=== PATIENT | male | born 2005 | race Caucasian/White ===

== ENCOUNTER 2025-07-08 20:02 | Emergency (ER) | payer BC ==
[2025-07-08] MEDS ORDERED: Bacitracin Oint 1 GM U/D Packet TOP ONE (20:19)
[2025-07-08] MEDS: fentaNYL 100 MCG/2 ML SDV IVPUSH ONE (20:27)
[2025-07-08] MEDS: Albuterol 0.021% 0.63 MG/3 ML Neb Soln NEB ONE (20:31)
[2025-07-08] MEDS: Lidocaine 2% Viscous Solution 15 ML UD PO ONE (20:31)
[2025-07-08] MEDS: Take Home: Acetaminophen/HYDROcodone 325-5 MG, 5 Tab Pack PO ONE (22:39)
[2025-07-08] MEDS: Take Home: Lidocaine 2% Viscous Solution 15 ML UD, 2 Cup Pack PO ONE (22:39)
== END 2025-07-08 22:43 | disposition home or self-care (01) ==
LOC: DL.ED 20:02
DX: T20.27XA Burn of second degree of neck, initial encounter (principal); T23.172A Burn of first degree of left wrist, initial encounter; T23.171A Burn of first degree of right wrist, initial encounter; X19.XXXA Contact with other heat and hot substances, initial encounter
CPT/HCPCS: 16020; 96374; 99283; A9270; J3010; J3490; J7030; J7613